=== PATIENT | female | born 1950 | race Caucasian/White ===

== ENCOUNTER 2021-11-08 13:52 | Emergency (ER) | payer MEDICARE ==
[2021-11-08 14:41] LABS: BASO # 0.04 K/mm3 (0.02-0.10); EOS # 0.06 K/mm3 (0.04-0.40); HEMATOCRIT 46.4 % (37.0-47.0); HEMOGLOBIN 14.9 g/dL (12.5-16.0); LYMPH# 2.58 K/mm3 (1.50-4.00); MEAN CELL VOLUME 83 fl (78-100); MEAN CORPUSCULAR HEMOGLOBIN 27 pg (27-31); MEAN CORPUSCULAR HGB CONC 32 g/dL (33-37); MEAN PLATELET VOLUME 10.2 fl (7.4-10.4); MONO # 0.65 K/mm3 (0.20-0.80); NEU # 2.87 K/mm3 (1.40-6.50); PLATELET COUNT 282 K/mm3 (130-400); RED CELL DISTRIBUTION WIDTH 13.1 % (11.5-14.5); WHITE BLOOD COUNT 6.2 K/mm3 (4.8-10.8)
[2021-11-08] MEDS ORDERED: NATURE'S BLEND1 T11 PO (14:42)
[2021-11-08] MEDS ORDERED: LEXAPRO20 M1 PO (14:42)
[2021-11-08] MEDS ORDERED: ATORVASTATIN CA20 MG PO (14:43)
[2021-11-08] MEDS ORDERED: ANTIVERT12.5 M1 PO (14:43)
[2021-11-08] MEDS ORDERED: COQ-1030 MG (14:44)
[2021-11-08] MEDS ORDERED: MASON NATURAL500 MG (14:44)
[2021-11-08] MEDS ORDERED: VITAMIN A10000 UNI2 (14:45)
[2021-11-08] MEDS ORDERED: VITAMIN B122500 MC1 (14:45)
[2021-11-08] MEDS ORDERED: VITAMIN D310 MC3 (14:45)
[2021-11-08 14:47] LABS: URINE APPEARANCE CLEAR; URINE COLOR YELLOW
[2021-11-08 14:48] LABS: ALBUMIN 4.4 g/dL (3.4-4.8); POTASSIUM 3.5 mmol/L (3.5-5.1)
[2021-11-08 14:48] LABS: URINE BILIRUBIN NEGATIVE (NEGATIVE); URINE BLOOD TRACE (NEGATIVE); URINE GLUCOSE NEGATIVE (NEGATIVE); URINE KETONE NEGATIVE (NEGATIVE); URINE LEUKOCYTE ESTERASE NEGATIVE (NEGATIVE); URINE NITRATE NEGATIVE (NEGATIVE); URINE PROTEIN(semi-quant) 1+ mg/dL (NEGATIVE); URINE UROBILINOGEN NORMAL (NORMAL)
[2021-11-08 14:49] LABS: CALCIUM 9.7 mg/dL (8.3-10.5)
[2021-11-08 14:51] LABS: TOTAL PROTEIN 7.7 g/dL (6.2-8.1)
[2021-11-08 14:52] LABS: TOTAL BILIRUBIN 0.7 mg/dL (0.2-1.2)
[2021-11-08] MEDS ORDERED: PROMETHAZINE12.5 M5 PO (16:58)
[2021-11-08] MEDS ORDERED: PRILOSEC OTC20 MG PO (16:58)
[2021-11-08] MEDS ORDERED: HYDROXYZINE HYD50 M1 PO (16:58)
[2021-11-08 17:32] VITALS: BP 126/68
== END 2021-11-08 18:31 | disposition home or self-care (01) ==
LOC: ED 13:52
PROVIDERS: Physician Assistant
DX: U07.1 COVID-19 (principal); F41.9 Anxiety disorder, unspecified; E86.0 Dehydration; K21.9 Gastro-esophageal reflux disease without esophagitis; E78.5 Hyperlipidemia, unspecified; Z79.899 Other long term (current) drug therapy
CPT/HCPCS: C9113; J2060; J2405; J2550; J7030